=== PATIENT | male | born 1940 | race Caucasian/White ===

== ENCOUNTER 2017-05-22 12:44 | Inpatient (IN) | payer OTHER ==
[~2017-05-22] VITALS: Ht 165.1 cm; Wt 74.4 kg
[2017-05-22 13:07] VITALS: Ht 165.1 cm; Wt 74.4 kg
[2017-05-22 19:33] LABS: BASOPHIL % 0.1 % (0-2); PLATELET COUNT 212 x10^3mcL (130-400); RED CELL DISTRIBUTION WIDTH 13.4 % (11.5-14.5)
[2017-05-22 19:40] LABS: UA SPECIFIC GRAVITY >=1.030 (1.005-1.035); microscopic required? YES; urine erythrocyte TRACE (NEGATIVE)
[2017-05-22 19:54] LABS: CALCIUM 9.2 mg/dL (8.5-10.1); CARBON DIOXIDE 28.6 mmol/L (21-32); CHLORIDE SERUM 99 mmol/L (98-107); CREATININE SERUM 1.1 mg/dL (0.7-1.3); GLUCOSE SERUM 140 mg/dL (74-106); POTASSIUM SERUM 3.7 mmol/L (3.5-5.1); SODIUM SERUM 137 mmol/L (136-145)
[2017-05-22 19:56] LABS: ALBUMIN 3.5 g/dL (3.4-5.0); ALKALINE PHOSPHATASE 63 U/L (46-116); ALT/SGPT 29 U/L (16-63); AMYLASE 31 U/L (25-115); AST/SGOT 19 U/L (15-37); BILIRUBIN TOTAL 0.88 mg/dL (0.20-1.00); LIPASE 84 IU/L (73-393); TOTAL PROTEIN, SERUM 8.1 g/dL (6.4-8.2)
[2017-05-22 22:11] VITALS: BP 162/74
[2017-05-22 22:15] VITALS: BP 162/74
[2017-05-22 23:19] LABS: MAGNESIUM 2.7 mg/dL (1.8-2.4); PHOSPHOROUS 2.6 mg/dL (2.5-4.9)
[2017-05-22 23:26] LABS: T3 TOTAL 1.11 ng/mL
[2017-05-22 23:31] LABS: CHOLESTEROL/HDL RATIO 2.5
[2017-05-22] MEDS ORDERED: ZOCOR20 MG PO (23:59)
[2017-05-23] MEDS ORDERED: NIFEDIPINE60 MG PO
[2017-05-23] MEDS ORDERED: VITAMIN D3400 I1 PO (00:01)
[2017-05-23] MEDS ORDERED: EPZICOM1 TAB (00:01)
[2017-05-23] MEDS ORDERED: LOPRESSOR50 M1 PO (00:02)
[2017-05-23] MEDS ORDERED: Q-PAP ES500 M1 PO (00:03)
[2017-05-23] MEDS ORDERED: FLOMAX0.4 MG PO (00:04)
[2017-05-23 05:21] VITALS: BP 150/72
[2017-05-23 07:47] LABS: PLATELET COUNT 184 x10^3mcL (130-400)
[2017-05-23 08:01] LABS: BASOPHIL % 0 % (0-2)
[2017-05-23 08:08] LABS: CALCIUM 8.3 mg/dL (8.5-10.1); CARBON DIOXIDE 25.6 mmol/L (21-32); CHLORIDE SERUM 103 mmol/L (98-107); CREATININE SERUM 0.8 mg/dL (0.7-1.3); GLUCOSE SERUM 168 mg/dL (74-106); MAGNESIUM 2.3 mg/dL (1.8-2.4); POTASSIUM SERUM 3.6 mmol/L (3.5-5.1); SODIUM SERUM 138 mmol/L (136-145)
[2017-05-23 08:35] LABS: FREE T4 1.23 ng/dL (0.76-1.46); FREE THYROXINE INDEX 3.1 ug/dL (1.4-4.5); T4(THYROXINE) 8.7 ug/dL (4.7-13.3)
[2017-05-23 09:21] VITALS: BP 141/78
[2017-05-23 11:27] VITALS: BP 136/70
[2017-05-23 21:20] VITALS: BP 163/83
[2017-05-24] VITALS (7 sets, daily range): BP systolic 138–198; BP diastolic 70–94
[2017-05-24 07:19] LABS: BASOPHIL % 0.4 % (0-2); PLATELET COUNT 214 x10^3mcL (130-400); RED CELL DISTRIBUTION WIDTH 13.2 % (11.5-14.5)
[2017-05-24 07:54] LABS: CALCIUM 9.1 mg/dL (8.5-10.1); CARBON DIOXIDE 23.7 mmol/L (21-32); CHLORIDE SERUM 103 mmol/L (98-107); CREATININE SERUM 0.7 mg/dL (0.7-1.3); GLUCOSE SERUM 206 mg/dL (74-106); MAGNESIUM 2.3 mg/dL (1.8-2.4); PHOSPHOROUS 2.1 mg/dL (2.5-4.9); POTASSIUM SERUM 3.5 mmol/L (3.5-5.1); SODIUM SERUM 136 mmol/L (136-145)
[2017-05-25 06:07] VITALS: BP 166/82
[2017-05-25 07:19] LABS: BASOPHIL % 0.4 % (0-2); PLATELET COUNT 261 x10^3mcL (130-400); RED CELL DISTRIBUTION WIDTH 13.1 % (11.5-14.5)
[2017-05-25 07:58] LABS: CALCIUM 8.8 mg/dL (8.5-10.1); CARBON DIOXIDE 25.9 mmol/L (21-32); CHLORIDE SERUM 103 mmol/L (98-107); CREATININE SERUM 0.7 mg/dL (0.7-1.3); GLUCOSE SERUM 246 mg/dL (74-106); MAGNESIUM 2.4 mg/dL (1.8-2.4); PHOSPHOROUS 2.6 mg/dL (2.5-4.9); POTASSIUM SERUM 3.2 mmol/L (3.5-5.1); SODIUM SERUM 138 mmol/L (136-145)
[2017-05-25 08:54] VITALS: BP 160/91
[2017-05-25 17:48] VITALS: BP 185/89
[2017-05-25 18:38] VITALS: BP 162/70
[2017-05-25 21:24] VITALS: BP 183/89
[2017-05-26 06:08] VITALS: BP 189/87
[2017-05-26 08:25] LABS: CALCIUM 9.5 mg/dL (8.5-10.1); CARBON DIOXIDE 21.5 mmol/L (21-32); CHLORIDE SERUM 104 mmol/L (98-107); CREATININE SERUM 0.7 mg/dL (0.7-1.3); GLUCOSE SERUM 294 mg/dL (74-106); MAGNESIUM 2.4 mg/dL (1.8-2.4); PHOSPHOROUS 2.6 mg/dL (2.5-4.9); POTASSIUM SERUM 3.6 mmol/L (3.5-5.1); SODIUM SERUM 137 mmol/L (136-145)
[2017-05-26 08:40] LABS: BASOPHIL % 0.1 % (0-2); PLATELET COUNT 299 x10^3mcL (130-400); RED CELL DISTRIBUTION WIDTH 13.3 % (11.5-14.5)
[2017-05-26 09:16] VITALS: BP 186/76
[2017-05-26 14:14] VITALS: BP 178/87
[2017-05-26 16:00] VITALS: BP 138/79
[2017-05-26 20:39] VITALS: BP 167/76
[2017-05-27 05:09] VITALS: BP 167/75
[2017-05-27 07:12] LABS: BASOPHIL % 0.2 % (0-2); PLATELET COUNT 281 x10^3mcL (130-400); RED CELL DISTRIBUTION WIDTH 13.3 % (11.5-14.5)
[2017-05-27 07:20] LABS: CALCIUM 9.2 mg/dL (8.5-10.1); CHLORIDE SERUM 105 mmol/L (98-107); CREATININE SERUM 0.7 mg/dL (0.7-1.3); GLUCOSE SERUM 215 mg/dL (74-106); MAGNESIUM 2.1 mg/dL (1.8-2.4); PHOSPHOROUS 3.5 mg/dL (2.5-4.9); POTASSIUM SERUM 3.3 mmol/L (3.5-5.1); SODIUM SERUM 141 mmol/L (136-145)
[2017-05-27 11:21] VITALS: BP 169/80
[2017-05-27 13:28] VITALS: BP 115/65
[2017-05-27 17:11] VITALS: BP 142/71
[2017-05-27 21:57] VITALS: BP 167/76
[2017-05-28 06:42] VITALS: BP 178/84
[2017-05-28 06:52] LABS: CALCIUM 8.7 mg/dL (8.5-10.1); CARBON DIOXIDE 29.7 mmol/L (21-32); CHLORIDE SERUM 106 mmol/L (98-107); CREATININE SERUM 0.9 mg/dL (0.7-1.3); GLUCOSE SERUM 207 mg/dL (74-106); POTASSIUM SERUM 3.5 mmol/L (3.5-5.1); SODIUM SERUM 143 mmol/L (136-145)
[2017-05-28 06:54] LABS: BASOPHIL % 0.2 % (0-2); PLATELET COUNT 288 x10^3mcL (130-400); RED CELL DISTRIBUTION WIDTH 13.4 % (11.5-14.5)
[2017-05-28 10:59] VITALS: BP 178/85
[2017-05-28 17:36] VITALS: BP 171/80
[2017-05-28 21:54] VITALS: BP 149/69
[2017-05-29 06:37] VITALS: BP 154/69
[2017-05-29 13:50] VITALS: BP 139/67
[2017-05-29 18:25] VITALS: BP 130/67
[2017-05-29 23:01] VITALS: BP 161/76
[2017-05-30 05:22] VITALS: BP 142/63
[2017-05-30 06:32] LABS: BASOPHIL % 0.4 % (0-2); PLATELET COUNT 281 x10^3mcL (130-400); RED CELL DISTRIBUTION WIDTH 13.6 % (11.5-14.5)
[2017-05-30 07:02] LABS: CALCIUM 8.1 mg/dL (8.5-10.1); CARBON DIOXIDE 24.1 mmol/L (21-32); CHLORIDE SERUM 110 mmol/L (98-107); CREATININE SERUM 0.9 mg/dL (0.7-1.3); GLUCOSE SERUM 133 mg/dL (74-106); MAGNESIUM 2.2 mg/dL (1.8-2.4); PHOSPHOROUS 3.1 mg/dL (2.5-4.9); POTASSIUM SERUM 3.8 mmol/L (3.5-5.1); SODIUM SERUM 142 mmol/L (136-145)
[2017-05-30 10:30] VITALS: BP 105/57
[2017-05-30] MEDS ORDERED: SIMETHICONE80 MG CH (15:12)
[2017-05-30] MEDS ORDERED: COL100UDC PO (15:13)
[2017-05-30] MEDS ORDERED: PROTONIX40 MG PO (15:14)
[2017-05-30 15:29] VITALS: BP 105/57
== END 2017-05-30 16:24 | disposition home or self-care (01) | DRG 341 ==
LOC: ED 12:44 → DU 21:16 → MU 21:16 → DU 21:55 → MU 05-25 08:26 → DU 05-26 06:21 → MU 05-26 09:06
PROVIDERS: Emergency Medicine; Family Medicine; Student in an Organized Health Care Education/Training Program; Surgery
PROC: 0DJD4ZZ Inspection of Lower Intestinal Tract, Percutaneous Endoscopic Approach (ICD-10-PCS; 2017-05-23)
PROC: 0DTJ0ZZ Resection of Appendix, Open Approach (ICD-10-PCS; principal; 2017-05-23 08:30)
DX: K35.89 Other acute appendicitis (principal); N17.0 Acute kidney failure with tubular necrosis; K56.7 Ileus, unspecified; N39.0 Urinary tract infection, site not specified; E11.65 Type 2 diabetes mellitus with hyperglycemia; E11.51 Type 2 diabetes mellitus with diabetic peripheral angiopathy without gangrene; I11.9 Hypertensive heart disease without heart failure; R80.9 Proteinuria, unspecified; R31.9 Hematuria, unspecified; N40.0 Benign prostatic hyperplasia without lower urinary tract symptoms; E78.5 Hyperlipidemia, unspecified; Z68.28 Body mass index [BMI] 28.0-28.9, adult
CPT/HCPCS: 83880; 84439; 94150; 97110-GP; 97116-GP; 97530-GP; C9113; J0330; J0360; J0690; J1644; J1885; J1956; J2175; J2250; J2270; J2405; J2704; J2710; J2765; J3010; J3480; J3490; J7030; J7131; J8597; Q0092; Q9967